=== PATIENT | female | born 1945 | race African-American/Black ===

== ENCOUNTER 2024-04-30 18:23 | Emergency (ER) | payer MEDICARE ==
[~2024-04-30] VITALS: Ht 170.2 cm; Wt 54.0 kg
[2024-04-30 18:32] VITALS: TEMP 36.9; O2SAT 98
[2024-04-30 19:55] VITALS: BP 180/99; PULSE 94; RESP 18
[2024-04-30] MEDS: KETOROLAC 30MG/ML VIAL IM ONE (19:55)
[2024-04-30] MEDS ORDERED: IBUP-2029 MT (20:28)
== END 2024-04-30 20:45 | disposition home or self-care (01) ==
LOC: ER 18:39
DX: M16.11 Unilateral primary osteoarthritis, right hip (principal); I10 Essential (primary) hypertension; E03.9 Hypothyroidism, unspecified; W19.XXXA Unspecified fall, initial encounter; Y93.89 Activity, other specified; Y92.89 Other specified places as the place of occurrence of the external cause; Y99.8 Other external cause status
CPT/HCPCS: 99284; 72192; 96372; J1885